=== PATIENT | male | born 1965 | race Caucasian/White ===

== ENCOUNTER → 2016-03-05 | Outpatient (CLI) | payer OTHER ==
[~2016-03-05] MED LIST: ATOR20TA38 PO; BARIUM SULFATE PO ONE; CHOL2000 PO; OMEP20CA16 PO; RANI150T5 PO
--- NOTE | 2016-03-05 11:15 | RADRPT ---
PROCEDURE: Small bowel follow-through. CLINICAL INDICATION: Abdomen pain. TECHNIQUE: Water-soluble contrast was administered orally and several spot and overhead radiograph s of the abdomen were obtained. COMPARISON: None. FINDINGS: The preliminary radiograph is normal. There is no small bowel displacement or mass. The small bowel folds are normal. There is no evidence of obstruction. Transit time is normal with contrast in the colon at 60 minutes. Spot views of the terminal ileum are unremarkable with no mass or other abnormality. IMPRESSION: 1. Normal small bowel follow-through. RPTAT: QQ .Hao Gomez MD, Date Time Electronically viewed and signed by .Hao Gomez MD, on 03/05/2016 11:14 .R/
== END | disposition home or self-care (01) ==
LOC: RAD 08:39
PROVIDERS: ATTEND Internal Medicine
DX: R10.9 Unspecified abdominal pain (principal)
CPT/HCPCS: 74250; Z7610